=== PATIENT | female | born 1970 | race Two or more races ===

== ENCOUNTER 2018-12-22 00:54 | Emergency (ER) | payer BC ==
[2018-12-22] MEDS ORDERED: NORMAL SALINE 1000 ML 1,000 ML IV ONE (02:03)
[2018-12-22] MEDS ORDERED: KETOROLAC TROMETHAMINE INJ/PF 30 MG/1 ML SDV IV ONE (02:03)
--- NOTE | 2018-12-22 02:05 | ER Document Report ---
ED General - General Chief Complaint: Flu Symptoms Stated Complaint: SHORTNESS OF BREATH,POSSIBLE BLOOD IN URINE Time Seen by Provider: 12/22/18 01:55 Primary Care Provider: COSME CASTELAN PA [NO LOCAL MD] - Follow up as needed Notes: Patient is a 47-year-old female that comes emergency department for chief compla int of feeling poorly for 1 week. She states she has had a nonproductive cough that is occasional, she states she has been getting frequent body aches and headaches, she states she has no energy. She is also had shaking chills although she has not measured a temperature. She states she is gotten worse and she feels much worse today. She states sometimes she feels like her head or generally she is going to explode. She denies vomiting, specific abdominal pain, specific chest pain, specific area of headache, neck stiffness, sore throat, or congestion. She denies any obvious sick contacts but she does work in the medical field. She denies smoking, alcohol, recreational drugs. Past medical history of bipolar disorder, ADHD, hysterectomy, orthopedic surgery. TRAVEL OUTSIDE OF THE [place] IN LAST 30 DAYS: Yes - [place] IN [place] - Related Data Allergies/Adverse Reactions: Shrimp Allergy (Unknown, Uncoded 01/24/15 01:34) Home Medications: zyprexa. lumictal. fluoxetine. vyvance Past Medical History - General Information source: Patient - Social History Smoking Status: Never Smoker Chew tobacco use (# tins/day): No Frequency of alcohol use: None Drug Abuse: None Lives with: Family Family History: Reviewed & Not Pertinent Patient has suicidal ideation: No Patient has homicidal ideation: No - Past Medical History Cardiac Medical History: Denies: Hx Coronary Artery Disease, Hx Heart Attack, Hx Hypertension Pulmonary Medical History: Reports: Hx Asthma - pt to bring inhaler Denies: Hx Bronchitis, Hx COPD, Hx Pneumonia Neurological Medical History: Denies: Hx Cerebrovascular Accident, Hx Seizures Musculoskeletal Medical History: Denies Hx Arthritis Surgical Hx: Negative - Immunizations Hx Diphtheria, Pertussis, Tetanus Vaccination: Yes Review of Systems - Review of Systems Constitutional: See HPI EENT: No symptoms reported Cardiovascular: No symptoms reported Respiratory: See HPI Gastrointestinal: See HPI Genitourinary: See HPI Female Genitourinary: No symptoms reported Musculoskeletal: See HPI Skin: No symptoms reported Hematologic/Lymphatic: No symptoms reported Neurological/Psychological: No symptoms reported Physical Exam - Vital signs Vitals: Temp Pulse Resp BP Pulse Ox 99.3 F 103 H 18 123/63 95 12/22/18 01:02 12/22/18 01:02 12/22/18 01:02 12/22/18 01:02 12/22/18 01:02 - Notes Notes: GENERAL: Alert, no signs of distress HEAD: Normocephalic, atraumatic. EYES: Pupils equal, round, and reactive to light. Extraocular movements intact. ENT: Oral mucosa moist, tongue midline. Oropharynx unremarkable. Airway patent. Nares patent, no nasal septal hematoma, TM's intact. NECK: Full range of motion. Supple. Trachea midline. No nuchal rigidity. LUNGS: Clear to auscultation bilaterally, no wheezes, rales, or rhonchi. No respiratory distress. HEART: Regular rate and rhythm. No murmur ABDOMEN: Minimal generalized tenderness. GENITOURINARY: Deferred EXTREMITIES: Moves all 4 extremities spontaneously. No edema, normal radial and dorsalis pedis pulses bilaterally. No cyanosis. BACK: No overt CVA tenderness noted. no cervical, thoracic, lumbar midline tend erness. No saddle anesthesia, normal distal neurovascular exam. Moves all extremities in full range of motion. NEUROLOGICAL: Alert and oriented x3. Normal speech. Cranial nerves II through XII grossly intact. PSYCH: Somewhat flat affect SKIN: Warm, dry, normal turgor. No rashes or lesions noted. Course - Re-evaluation Re-evalutation: Patient is a somewhat difficult historian. She does have coughing episodes on exam but her lungs are otherwise clear, she is not hypoxic, she is not ill in appearance. She has minimal generalized abdominal tenderness without guarding. She reports some flank pain but there is no overt CVA tenderness. She denies vomiting or diarrhea. She has no nuchal rigidity or headache. She is not conge sted, she has no tenderness of the sinuses, her ENT exam is completely unremarkable. CBC shows mild leukocytosis with elevation of neutrophils but no bandemia. Chemistry shows hypokalemia at 3.0 but QTC is unremarkable. Patient was given p.o. dose of 40 mg of potassium. Discussed with Dr. Thompson. Bilirubin is mildly elevated but lipase is negative, patient has already had a cholecystectomy, on reevaluation she has no abdominal pain reported or on palpation. Low suspicion of acute abdomen or obstructed stone. Chest x-ray is unremarkable. Urinalysis borderline with 3+ bacteria. There is also some contamination. I discussed with patient. She did get up and ambulate without difficulty, she remains nontoxic in appearance. We did discuss and decide to treat her for possible UTI as part of her symptoms of chills, abdominal and flank pain, and she also has a cough with what could be an underlying developing pneumonia. Provided with work-release, discussed potassium and given an additional dose, she will have this rechecked, discussed return precautions at length. Patient and son at bedside state appreciation and agreement. Stable at time of discharge. - Vital Signs Vital signs: Temp Pulse Resp BP Pulse Ox 99.2 F 103 H 16 114/47 L 100 12/22/18 02:40 12/22/18 01:02 12/22/18 04:25 12/22/18 04:25 12/22/18 04:25 - Laboratory Result Diagrams: 12/22/18 02:09 12/22/18 02:09 Laboratory results interpreted by me: 12/22/18 12/22/18 12/22/18 02:09 02:09 02:09 WBC 10.8 H MCV 79 L RDW 14.1 H Lymph % (Auto) 6.8 L Absolute Neuts (auto) 9.3 H Seg Neutrophils % 86.4 H Sodium 134.2 L Potassium 3.0 L* Calcium 8.3 L Total Bilirubin 2.1 H Direct Bilirubin 1.6 H AST 84 H Alkaline Phosphatase 223 H Albumin 3.2 L Lipase 11.3 L Urine Protein Urine Ketones Urine Blood Urine Bilirubin Urine Urobilinogen 12/22/18 03:53 WBC MCV RDW Lymph % (Auto) Absolute Neuts (auto) Seg Neutrophils % Sodium Potassium Calcium Total Bilirubin Direct Bilirubin AST Alkaline Phosphatase Albumin Lipase Urine Protein 30 H Urine Ketones 20 H Urine Blood MODERATE H Urine Bilirubin SMALL H Urine Urobilinogen 4.0 H - EKG Interpretation by Me Additional EKG results interpreted by me: EKG shows sinus rhythm at a rate of 79, QTC of 432, normal axis, no T wave inversions or ST segment changes in consecutive leads. Discharge - Discharge Clinical Impression: Cough, Chills, Nausea, Body aches Condition: Stable Disposition: HOME, SELF-CARE Additional Instructions: We are treating you for appearance of UTI and possible underlying pneumonia. Take antibiotics as prescribed to completion. Rest, drink plenty of fluids, symptoms should resolve. Your potassium was low, you have been treated for this, increase potassium in your diet (bananas are good source) and follow-up with primary care for recheck. Come back if you are worse including vomiting, passing out, spiking fevers, difficulty breathing, or any other concerning or worsening symptoms. Prescriptions: Doxycycline Hyclate 100 mg PO BID #14 capsule Forms: Return to Work Referrals: COSME CASTELAN PA [NO LOCAL MD] - Follow up as needed
[2018-12-22 02:21] LABS: ABSOLUTE EOSINOPHILS # (AUTO) 0.1 10^3/uL (0.0-0.6); ABSOLUTE LYMPHOCYTES (AUTO) 0.7 10^3/uL (0.5-4.7); ABSOLUTE MONOCYTES (AUTO) 0.7 10^3/uL (0.1-1.4); ABSOLUTE NEUT (AUTO) 9.3 10^3/uL (1.7-8.2); BASOPHILS % (AUTO) 0.1 % (0-2); EOSINOPHILS % (AUTO) 0.7 % (0-6); HEMATOCRIT 36.2 % (36.0-47.0); HEMOGLOBIN 12.5 g/dL (12.0-15.5); LYMPHOCYTES % (AUTO) 6.8 % (13-45); MEAN CORPUSCULAR HEMOGLOBIN 27.2 pg (27.0-33.4); MEAN CORPUSCULAR HGB CONC 34.5 g/dL (32.0-36.0); MEAN CORPUSCULAR VOLUME 79 fl (80-97); PLATELET COUNT 273 10^3/uL (150-450); RED CELL DISTRIBUTION WIDTH 14.1 % (11.5-14.0); SEGMENTED NEUTROPHILS % (AUTO) 86.4 % (42-78); TOTAL CELLS COUNTED % (AUTO) 100 %; WHITE BLOOD COUNT 10.8 10^3/uL (4.0-10.5)
[2018-12-22 02:39] LABS: ALBUMIN 3.2 g/dL (3.5-5.0); ALKALINE PHOSPHATASE 223 U/L (38-126); ANION GAP 10 (5-19); ASPARTATE AMINO TRANSFERASE 84 U/L (14-36); BILIRUBIN,DIRECT 1.6 mg/dL (0.0-0.4); BILIRUBIN,TOTAL 2.1 mg/dL (0.2-1.3); BLOOD UREA NITROGEN 8 mg/dL (7-20); CALCIUM 8.3 mg/dL (8.4-10.2); CARBON DIOXIDE 24 mmol/L (22-30); CHLORIDE 100 mmol/L (98-107); GLUCOSE 100 mg/dL (75-110); TOTAL PROTEIN 7.4 g/dL (6.3-8.2)
[2018-12-22] MEDS ORDERED: POTASSIUM CHLORIDE 10 MEQ CAPSULE.ER PO ONE ×2 (02:50→04:38)
--- NOTE | 2018-12-22 02:59 | RADIOLOGY REPORT (SQ) ---
EXAM DESCRIPTION: XR CHEST 2 VIEWS COMPLETED DATE/TME: 12/22/2018 02:02 CLINICAL HISTORY: cough and chills x 1 week COMPARISON: 08/24/2015 FINDINGS: Frontal and lateral views of the chest. Cardiomediastinal silhouette: Normal size and contour. Lungs: No consolidation, pneumothorax, or pleural effusion. Low lung volumes. Leads overlie the chest. Bones: No acute osseous abnormality. Upper abdomen: Prior cholecystectomy. IMPRESSION: 1. No acute pulmonary process identified.
[2018-12-22 04:29] LABS: APPEARANCE,URINE SLIGHTLY-CLOUDY; BILIRUBIN,URINE SMALL (NEGATIVE); GLUCOSE, URINE NEGATIVE (NEGATIVE); KETONES,URINE 20 mg/dL (NEGATIVE); LEUKOCYTE ESTERASE,URINE NEGATIVE (NEGATIVE); NITRITE,URINE NEGATIVE (NEGATIVE); PROTEIN,URINE 30 mg/dL (NEGATIVE); URINE SPECIFIC GRAVITY 1.017
[2018-12-22 04:31] LABS: COLOR,URINE DARK YELLOW
[2018-12-22] MEDS ORDERED: DOXYCYCLINE HYCLATE 100 MG TABLET PO ONE (04:35)
[2018-12-22 04:37] VITALS: BP 114/47
--- NOTE | 2018-12-22 07:07 | EKG REPORT ---
SEVERITY:- NORMAL ECG - SINUS RHYTHM : Confirmed by: Magen Alexandra 22-Dec-2018 07:06:17
== END 2018-12-22 04:54 | disposition home or self-care (01) ==
LOC: ER 00:54
DX: R05 Cough (principal); R68.83 Chills (without fever); R11.0 Nausea; R10.817 Generalized abdominal tenderness; R10.9 Unspecified abdominal pain; E87.6 Hypokalemia; D72.828 Other elevated white blood cell count; J45.909 Unspecified asthma, uncomplicated; Z79.899 Other long term (current) drug therapy; Z91.013 Allergy to seafood; Z90.49 Acquired absence of other specified parts of digestive tract
CPT/HCPCS: 93005; 36415; 87086; 83690; 83735; 85025; 80053; 81001; 71046; 93010; J1885; J7030; 96361; 96374; 99284